=== PATIENT | female | born 1965 | race African-American/Black ===

== ENCOUNTER → 2016-09-05 | Outpatient (CLI) | payer MEDICARE, MEDICAID ==
[2014-01-04 21:53] VITALS: BP 123/68
[~2016-09-05] MED LIST: UNABLE MC
--- NOTE | 2016-09-05 16:12 | RAD ---
DATE: 09/05/2016. EXAM: DIGITAL SCREEN BILAT W/CAD. HISTORY: Routine mammographic screening. COMPARISON: 08/23/2013. This study was interpreted with the benefit of Computerized Aided Detection (CAD). FINDINGS: The breast parenchyma shows scattered fibroglandular densities. There are no suspicious masses, microcalcifications or architectural distortion. Reduction mammoplasty changes are seen bilaterally. Scattered calcifications are benign. BI-RADS CATEGORY: 2 BENIGN FINDING(S). RECOMMENDED FOLLOW-UP: 12M 12 MONTH FOLLOW-UP. PQRS compliance statement: Patient information was entered into a reminder system with a target due date 09/05/2017 for the next mammogram. Mammography is a sensitive method for finding small breast cancers, but it does not detect them all and is not a substitute for careful clinical examination. A negative mammogram does not negate a clinically suspicious finding and should not result in delay in biopsying a clinically suspicious abnormality. "Our facility is accredited by the [employer] Mammography Program."
== END | disposition home or self-care (01) ==
LOC: MAMMO 14:20
PROVIDERS: ATTEND Family Medicine
DX: Z12.31 Encounter for screening mammogram for malignant neoplasm of breast (principal)
CPT/HCPCS: G0202; 77067

== ENCOUNTER → 2017-05-05 | Day surgery (SDC) | payer MEDICARE ==
[~2017-05-05] MED LIST changes: +ACET325T9 PO; +ATEN25TA PO; +ESCITALOPRAM OX10 MG PO; +HYDROmorphone 2 MG/ML VIAL IV PRN; +IV RINGERS,LACTATED 1000ML 1,000 ML IV SCH; +LIDOCAINE 1% PF 2 ML VIAL. ID PRN; +LOSA1TAB19 PO; +LUBI24CA7 PO; +LURA60TA PO; +MORPHINE SULFATE 2 MG/ML DISP.SYRIN. IV PRN; +NAPR500T PO; +OMEP40CA5 PO; +ONDA4TAB11 PO; +ONDANSETRON PF 4 MG/2 ML VIAL. IV PRN; +PROCHLORPERAZINE 10 MG/2 ML VIAL. IV PRN; +PROPOFOL 20 ML IV ONE; +SIMV20TA3 PO; +fentaNYL PF VIAL 100 MCG/2 ML VIAL IV PRN
--- NOTE | 2017-05-05 10:23 | PDOC1 ---
HISTORY & PHYSICAL H&P Glenys Quach [id number] 1965 01/20/2017 02:30 PM 06/[address] [place] [address] [employer] [facility] OUR PATIENTS COME FIRST [address] [place] [address] Ph. [phone] Patient: Glenys Quach Date of : 1965 Date: 01/20/2017 2:30 PM Visit Type: Consult This 51 year old female presents for Abdominal pain and Screening colonoscopy. History of Present Illness: 1. Abdominal pain Location is diffuse. The patient describes it as aching, bloating and gnawing. Denies aggravating factors. Denies relieving factors. Additional information: Patient has no consistent complain and appears to have no understanding of issues. Explain in detail as to need for colonoscopy due to complain and also cor screening purposes. 2. Screening colonoscopy No prior screening. Denies risk factors. Associated symptoms include abdominal pain. Pertinent negatives include change in bowel habits, change in stool caliber, constipation, decreased appetite, diarrhea, melena, nausea, rectal bleeding, vomiting, weight gain and weight loss. Additional information : No family history of colon cancer, No family history of Crohn's/colitis and No NSAID/ASA use. INTAKE COMMENTS: Intake Comments: Nurse Note: the pt is here today to schedule a colonoscopy, the pt is having some abd pain. She states that she had a colonoscopy before. PROBLEM LIST: Problem Description Onset Date Chronic Notes Hypertension 01/21/2017 Y PAST MEDICAL/SURGICAL HISTORY (Detailed) Disease/disorder Onset Date Management Date Comments Tonsillectomy Breast Reduction Depression Dyslipidemia GERD Hypertension Osteoarthritis Schizoaffective disorder Medications (Active): Started Medication Directions Instruction Stopped Amitiza 24 mcg capsule take 1 capsule by oral route 2 times every day with food and water atenolol 25 mg tablet take 1 tablet by oral route every day benzonatate 100 mg capsule take 1 capsule by oral route every 4 hours escitalopram 10 mg tablet take 1 tablet by oral route every day fluticasone 50 mcg/actuation nasal spray,suspension spray 1 spray by intranasal route every day in each nostril Latuda 60 mg tablet take 1 tablet by oral route every day with food (at least 350 calories) losartan 50 mg-hydrochlorothiazide 12.5 mg tablet take 1 tablet by oral route every day omeprazole 40 mg capsule,delayed release take 1 capsule by oral route every day before a meal ondansetron 8 mg disintegrating tablet take 1 tablet by oral route every 8 hours for [address] on top of the tongue where it will dissolve, then swallow 28 mg-800 mcg tablet simvastatin 20 mg tablet take 1 tablet by oral route every day in the evening Allergies: Ingredient Reaction Medication Name Comment LEVOFLOXACIN Levaquin TOPIRAMATE PENICILLINS REVIEW OF SYSTEMS System Neg/Pos Details Constitutional Negative Chills, fever, malaise, weight gain and weight loss. ENMT Negative Sore throat. Eyes Negative Double vision. Respiratory Negative Dyspnea and wheezing. Cardio Negative Chest pain and irregular heartbeat/palpitations. GI Positive Abdominal pain, See HPI. GI Negative Change in bowel habits, change in stool caliber, constipation, decreased appetite, diarrhea, melena, nausea, see HPI, rectal bleeding and vomiting. Negative Dysuria and hematuria. Endocrine Negative Cold intolerance and heat intolerance. Psych Negative Anxiety. Integumentary Negative Hives and rash. MS Negative Joint pain. Tano/Lymph Negative Easy bleeding and easy bruising. Allergic/Immuno Negative Food allergies. VITAL SIGNS Time BP mm/Hg Pulse /min Resp /min Temp F Ht ft Ht in Ht cm Wt lb Wt kg BMI kg/ m2 BSA m2 O2 Sat% 4:33 PM 138/74 68 98.1 5.0 4.00 162.56 131.20 59.511 22.52 97 Time Measured by 4:33 PM Adriana Davenport PHYSICAL EXAM: Exam Findings Details Constitutional Normal Well developed. Eyes Normal Conjunctiva - Right: Normal, Left: Normal. Sclera - Right: Normal, Left: Normal. Nasopharynx Normal Lips/teeth/gums - Normal. Neck Exam Normal Inspection - Normal. Thyroid gland - Normal. Respiratory Normal Inspection - Normal. Auscultation - Normal. Cardiovascular Normal Regular rate and rhythm. No murmurs, gallops, or rubs. Vascular Normal Pulses - Carotids: Normal, Femoral: Normal, Dorsalis pedis: Normal. Abdomen Normal Inspection - Normal. Anterior palpation - No guarding. No abdominal tenderness. No hepatic enlargement. No splenic enlargement. No hernia. No Ascites. Skin Normal Inspection - Normal. Extremity Normal No edema. Psychiatric Normal Oriented to time, place, person, and situation. Appropriate mood and effect. Assessment/Plan # Detail Type Description 1. Assessment Generalized abdominal pain (R10.84). Patient Plan Patient does not have any consistent issue and will await colonoscopy result for any findings. 2. Assessment Encounter for screening colonoscopy (Z12.11). Patient Plan schedule colonoscopy at [facility] Plan Orders Further diagnostic evaluations ordered today include(s) Colonoscopy to be performed today. She is to schedule a follow-up visit with Sincere Wiley MD upon completion of work-up Electronically signed by: Sincere Wiley MD 01/21/2017 12:45 PM Document generated by: Sincere Wiley 01/21/2017 12:45 PM Josh Arellano MD, Family Practice; Jhonatan Dillard MD Internal Medicine; Austin Murry MD, Internal Medicine; Lorna Wiley MD Internal Medicine; Sincere Wiley MD, Gastroenterology; Fredy Parson MD, Rheumatology, S. Donis Browning, Physical Medicine/Rehab JTessa Oropeza APRN ------ 05/05/17 Patient seen and examined. No change in H&P. SINCERE WILEY MD, PRAVIN N MD May 05, 2017 10:23
[2017-05-05 11:25] VITALS: BP 139/74
== END | disposition home or self-care (01) ==
LOC: ENDOS 08:57
PROVIDERS: ATTEND Internal Medicine Gastroenterology
DX: Z12.11 Encounter for screening for malignant neoplasm of colon (principal); K57.30 Diverticulosis of large intestine without perforation or abscess without bleeding; E78.00 Pure hypercholesterolemia, unspecified; I10 Essential (primary) hypertension; K21.9 Gastro-esophageal reflux disease without esophagitis; M19.91 Primary osteoarthritis, unspecified site; F41.9 Anxiety disorder, unspecified; F32.9 Major depressive disorder, single episode, unspecified; Z87.39 Personal history of other diseases of the musculoskeletal system and connective tissue; Z88.1 Allergy status to other antibiotic agents; Z88.0 Allergy status to penicillin
CPT/HCPCS: G0121; J2704

== ENCOUNTER 2017-05-17 22:44 | Emergency (ER) | payer MEDICARE ==
[~2017-05-17] VITALS: Ht 152.4 cm; Wt 59.0 kg
[~2017-05-17 22:44] MED LIST changes: -ACET325T9 PO; -HYDROmorphone 2 MG/ML VIAL IV PRN; -IV RINGERS,LACTATED 1000ML 1,000 ML IV SCH; -LIDOCAINE 1% PF 2 ML VIAL. ID PRN; -MORPHINE SULFATE 2 MG/ML DISP.SYRIN. IV PRN; -NAPR500T PO; -ONDANSETRON PF 4 MG/2 ML VIAL. IV PRN; -PROCHLORPERAZINE 10 MG/2 ML VIAL. IV PRN; -PROPOFOL 20 ML IV ONE; -fentaNYL PF VIAL 100 MCG/2 ML VIAL IV PRN
[2017-05-17 22:55] VITALS: BP 108/55
--- NOTE | 2017-05-17 23:32 | PHYS DOC ---
Past Medical History Past Medical History: Depression, Hypertension, Schizophrenia, Other Additional Past Medical Histor: liver problems, bowel problems Past Surgical History: Other Additional Past Surgical Histo: breast reduction Alcohol Use: None Drug Use: None Adult General Chief Complaint Chief Complaint: HEADACHE [facility] HPI Patient is a 51 year old female who presents with head injury and persistent headache. 51-year-old female presents with head injury. Thursday night which is approximately 3 weeks ago, patient's low back at work hitting her head. She denies loss of consciousness. She's been having some continued headache without any other symptoms.. She's not had any focal weakness. 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 She says she was at work when it happened. Pain is no longer constant and is intermittent. No worsening or relieving symptoms. No visual changes. She denies injury elsewhere. She says that symptoms are mildly improved with Motrin. SHe denies any neck pain change in vision, change in speech or memory. Review of Systems Review of Systems Constitutional: Denies fever or chills [] Eyes: Denies change in visual acuity, redness, or eye pain [] HENT: Denies nasal congestion or sore throat [] Respiratory: Denies cough or shortness of breath [] Cardiovascular: No additional information not addressed in HPI [] GI: Denies abdominal pain, nausea, vomiting, bloody stools or diarrhea [] : Denies dysuria or hematuria [] Musculoskeletal: Denies back pain or joint pain [] Integument: Denies rash or skin lesions [] Neurologic: Denies headache, focal weakness or sensory changes [] Endocrine: Denies polyuria or polydipsia [] All other systems were reviewed and found to be within normal limits, except as documented in this note. Allergies Allergies Allergies Coded Allergies Type Severity Reaction Last Updated Verified Penicillins Allergy Intermediate "i dont know" 05/05/17 No levofloxacin Allergy Intermediate 05/05/17 Yes topiramate Allergy Intermediate 05/05/17 Yes Physical Exam Physical Exam Vital signs recorded on the chart within normal limits stable normal Constitutional: Well developed, well nourished, no acute distress, non-toxic appearance. [] HENT: Normocephalic, atraumatic, bilateral external ears normal, oropharynx moist, no oral exudates, nose normal. She has a mild area of soft tissue tenderness over the occiput with no obvious step-offs or crepitus no signs of skull fracture. There is no obvious signs of basilar skull fracture with raccoon sign or Torres sign.[] Eyes: PERRLA, EOMI, conjunctiva normal, no discharge. Neck: Normal range of motion, no tenderness, supple, no stridor. [] Cardiovascular:Heart rate regular rhythm, no murmur [] Lungs & Thorax: Bilateral breath sounds clear to auscultation [] Skin: Warm, dry, no erythema, no rash. [] Back: No tenderness, no CVA tenderness. [] Extremities: No tenderness, no cyanosis, no clubbing, ROM intact, no edema. [] Neurologic: Alert and oriented X 3, normal motor function, normal sensory function, no focal deficits noted. She has normal finger to nose normal strength in all extremities no loss of sensation to light touch and proprioception over the limbs.[] Psychologic: Affect normal, judgement normal, mood normal. [] Current Patient Data Vital Signs Vital Signs Date Time Temp Pulse Resp B/P (MAP) Pulse Ox O2 Delivery O2 Flow Rate FiO2 05/17/17 22:55 98.1 64 16 108/55 (72) 99 Room Air 98.1 EKG EKG [] Radiology/Procedures Radiology/Procedures [] [facility] [address], [place] [id number] IMAGING REPORT Signed PATIENT: SENAIT LUCERO ACCOUNT: [id number] : 1965 LOCATION: ER AGE: 51 SEX: F EXAM STATUS: PRE ER ORD. PHYSICIAN: MARYJANE SNOWDEN MD REASON: fall with head injury PROCEDURE: CT HEAD AND CERVICAL SPINE WO CT of the head without contrast, 04/27/2017: History: Fall, head injury. Comparison is made to a study from 02/12/2006. The ventricles are within normal limits in size. There is no shift of the midline structures. There is no evidence of acute intracranial hemorrhage or mass effect. IMPRESSION: No acute intracranial abnormality is detected. CT of the cervical spine without contrast, 04/27/2017: Noncontrast scans were obtained with multiplanar reconstructions produced. There is moderate disc space narrowing at C5-6 with moderate anterior and posterior marginal spurring. Additional spurs are present at C4-5 and C6-7. There are mild scattered posterior disc bulges. There are minimal degenerative changes involving scattered facet joints. There is mild associated narrowing of the central spinal canal at C5-6 with mild bilateral foraminal narrowing at that level. No acute fracture or dislocation is identified. IMPRESSION: 1. Mild scattered degenerative changes. 2. No acute bony abnormality is detected. Results by me at approximately 11:30 PM Course & Med Decision Making Course & Med Decision Making Pertinent Labs and Imaging studies reviewed. (See chart for details) [Patient presents with persistent headache after a fall from standing at work with a negative head CT that was completed several weeks ago. Likely suffering from postconcussive syndrome. Patient has a normal neuro exam. With no obvious signs of basilar skull fracture or residual skull fracture that was missed on initial evaluation. Patient's intermittent headache is well treated with Motrin I will prescribe her Tylenol as well encouraged her to follow-up with her primary care doctor referral for Workmen's Compensation and referral to a neurologist. [facility] headache reevaluation: The patient presented to the emergency part with headache. The patient is now resting comfortably and feels better, is awake, talkative, interactive, and in no acute distress. The patient appears well and is able to tolerate by mouth fluids and medications. Repeat evaluation is unremarkable without any specific neurologic findings. The patient is neurologically intact, has normal mental status, and is ambulatory in the ED. The history, exam, and any diagnostic testing completed in the ED (if any) and the patient's current condition do not suggest meningitis, stroke, sepsis, subarachnoid hemorrhage, intracranial bleed , encephalitis, temporal arteritis, or other significant pathology warranting further testing and continue treatment in the ED. At this point I do not believe admission or neurologic consultation or other specialist evaluation are needed at this point. The patient's vital signs have been stabilized. Patient' s condition is stable and appropriate for discharge. The patient will pursue further up and evaluation with primary care and other designated resources or consulting physicians as indicated in the discharge instructions. Dragon Disclaimer Dragon Disclaimer This electronic medical record was generated, in whole or in part, using a voice recognition dictation system. Departure Departure Impression: Primary Impression: Post concussion syndrome Additional Impression: Headache Disposition: HOME, SELF-CARE Condition: STABLE Referrals: ALICIA FRANCISCO MD (PCP) Patient Instructions: Concussion and Brain Injury Additional Instructions: discharge: I've spoken with the patient and/or caregivers. I've explained the patient's condition, diagnosis and treatment plan based on information available to me at this time. I've answered the patient's and/or caregivers questions and addressed any concerns. The patient and/or caregivers have a good understanding the patient's diagnosis, condition and treatment plan as can be expected at this point. Vital signs have been stabilized. The patient's condition is stable for discharge from the emergency department. The patient will pursue further outpatient evaluation with her primary care provider or other designated consulting physician as outlined in the discharge instructions. Patient and/or caregivers are agreeable to this plan of care and follow-up instructions have been explained in detail. The patient and/or caregivers have received these instructions in written format and expressed understanding of these discharge instructions. The patient and her caregivers are aware that if any significant change in condition or worsening of symptoms should prompt him to immediately return to this of the closest emergency department. If an emergent department is not readily available I would encourage him to call 911. Scripts Naproxen (NAPROSYN) 500 Mg Tablet 1 TAB PO BID, #14 TAB 1 Refill Prov: RAFY DELUCA MD 05/18/17 Acetaminophen (TYLENOL) 325 Mg Tablet 1-2 TAB PO QID, #60 TAB 2 Refills Prov: RAFY DELUCA MD 05/18/17 Problem Qualifiers RAFY DELUCA MD May 17, 2017 23:32
[2017-05-18] MEDS ORDERED: NAPR-683 PO (00:01)
[2017-05-18] MEDS ORDERED: ACET325T9 PO (00:01)
== END 2017-05-18 00:06 | disposition home or self-care (01) ==
LOC: ER 22:44
DX: F07.81 Postconcussional syndrome (principal); F32.9 Major depressive disorder, single episode, unspecified; I10 Essential (primary) hypertension; F20.9 Schizophrenia, unspecified; Z88.0 Allergy status to penicillin; Z88.8 Allergy status to other drugs, medicaments and biological substances; Z88.1 Allergy status to other antibiotic agents; W18.39XA Other fall on same level, initial encounter; Y93.89 Activity, other specified; Y92.69 Other specified industrial and construction area as the place of occurrence of the external cause; Y99.8 Other external cause status
CPT/HCPCS: 99283

== ENCOUNTER → 2018-02-19 | Outpatient (CLI) | payer MEDICARE ==
[2017-05-17 23:50] VITALS: BP 111/56
[~2018-02-19] MED LIST changes: +ACET325T9 PO; +NAPR-683 PO
--- NOTE | 2018-02-19 15:46 | KCIC ---
EXAM: Right foot, 3 views. HISTORY: Trauma. COMPARISON: None. FINDINGS: 3 views of the right foot are obtained. There is no fracture, dislocation or subluxation. There is minimal spurring at the base of the first proximal phalanx. There is an accessory navicular. There is slight enthesopathy at the Achilles tendon insertion. IMPRESSION: No acute osseous finding. Electronically signed by: Vani Mijares MD (02/19/2018 3:42 PM) [facility] [place]
== END | disposition home or self-care (01) ==
LOC: KCIC 13:56
PROVIDERS: ATTEND Internal Medicine
DX: M76.61 Achilles tendinitis, right leg (principal); M77.51 Other enthesopathy of right foot and ankle; I10 Essential (primary) hypertension; E78.00 Pure hypercholesterolemia, unspecified; K21.9 Gastro-esophageal reflux disease without esophagitis; Z87.39 Personal history of other diseases of the musculoskeletal system and connective tissue; Z88.0 Allergy status to penicillin; Z88.1 Allergy status to other antibiotic agents; Z88.8 Allergy status to other drugs, medicaments and biological substances
CPT/HCPCS: 73630

== ENCOUNTER 2018-07-14 11:13 | Observation (INO) | payer MEDICARE ==
[~2018-07-14] VITALS: Ht 152.4 cm; Wt 71.9 kg
[2018-07-14] MEDS ORDERED: LIDO:MAALOX 1:1 20 ML SINGLE DOSE. SWSW ONE ×2 (11:45→14:30)
[2018-07-14 11:47] LABS: BASO % 0 % (0-3); EOS # 0.1 x10^3/uL (0.0-0.7); EOS % 2 % (0-3); HEMATOCRIT 40.4 % (36.0-47.0); HEMOGLOBIN 13.9 g/dL (12.0-15.5); LYMPH # 0.7 x10^3/uL (1.0-4.8); LYMPH % 14 % (24-48); MEAN CORPUSCULAR HEMOGLOBIN 32 pg (25-35); MEAN CORPUSCULAR HGB CONC 35 g/dL (31-37); MEAN CORPUSCULAR VOLUME 93 fL (79-100); MONO # 0.3 x10^3/uL (0.0-1.1); MONO % 7 % (0-9); NEUT # 4.1 x10^3uL (1.8-7.7); NEUT % 78 % (31-73); PLATELET COUNT 362 x10^3/uL (140-400); RED BLOOD COUNT 4.32 x10^6/uL (3.50-5.40); RED CELL DISTRIBUTION WIDTH 12.9 % (11.5-14.5); WHITE BLOOD COUNT 5.2 x10^3/uL (4.0-11.0)
--- NOTE | 2018-07-14 11:53 | PHYS DOC ---
Past Medical History Past Medical History: Depression, Hypertension, Schizophrenia, Other Additional Past Medical Histor: liver problems, bowel problems Past Surgical History: Tonsillectomy, Other Additional Past Surgical Histo: breast reduction Alcohol Use: None Drug Use: None Adult General Chief Complaint Chief Complaint: CHEST PAIN HPI HPI Patient is a 53 year old female presents with chest discomfort and throat pain she says she has had this pain every day since 2005 she says it hurts when she lies down and lays on her left side and she'll feel cramping and some burning pain up into her throat area she thinks it is heartburn but last night it was really bad she couldn't go to work her bosses really mean she wants a note she tells me. No shortness of breath no fever. It really only hurts when she lies flat it is not exertional in anyway. Review of Systems Review of Systems Constitutional: Denies fever or chills [] Eyes: Denies change in visual acuity, redness, or eye pain [] HENT: Denies nasal congestion or sore throat [] Musculoskeletal: Denies back pain or joint pain [] Integument: Denies rash or skin lesions [] Neurologic: Denies headache, focal weakness or sensory changes [] Endocrine: Denies polyuria or polydipsia [] All other systems were reviewed and found to be within normal limits, except as documented in this note. Current Medications Current Medications Current Medications Medications (Trade) Dose Ordered Sig/Cash Start Time Stop Time Status Last Admin Dose Admin Multi-Ingredient Mouthwash/Gargle (Gi Cocktail) 20 ml 1X ONCE 07/14/18 11:45 07/14/18 11:46 DC 07/14/18 11:55 20 ML Allergies Allergies Allergies Coded Allergies Type Severity Reaction Last Updated Verified Penicillins Allergy Intermediate "i dont know" 07/14/18 No levofloxacin Allergy Intermediate 07/14/18 Yes topiramate Allergy Intermediate 07/14/18 Yes Physical Exam Physical Exam Constitutional: Well developed, well nourished, no acute distress, non-toxic appearance. [] HENT: Normocephalic, atraumatic, bilateral external ears normal, oropharynx moist, no oral exudates, nose normal. [] Eyes: PERRLA, EOMI, conjunctiva normal, no discharge. [] Neck: Normal range of motion, no tenderness, supple, no stridor. [] Cardiovascular:Heart rate regular rhythm, no murmur [] Lungs & Thorax: Bilateral breath sounds clear to auscultation [] Abdomen: Bowel sounds normal, soft, no tenderness, no masses, no pulsatile masses. [] Skin: Warm, dry, no erythema, no rash. [] Back: No tenderness, no CVA tenderness. [] Extremities: No tenderness, no cyanosis, no clubbing, ROM intact, no edema. [] Neurologic: Alert and oriented X 3, normal motor function, normal sensory function, no focal deficits noted. [] Psychologic: odd affect Current Patient Data Vital Signs Vital Signs Date Time Temp Pulse Resp B/P (MAP) Pulse Ox O2 Delivery O2 Flow Rate FiO2 07/14/18 11:15 98.4 107 18 140/86 (104) 93 Room Air 98.4 Lab Values Laboratory Tests Test 07/14/18 11:25 White Blood Count 5.2 x10^3/uL (4.0-11.0) Red Blood Count 4.32 x10^6/uL (3.50-5.40) Hemoglobin 13.9 g/dL (12.0-15.5) Hematocrit 40.4 % (36.0-47.0) Mean Corpuscular Volume 93 fL (79-100) Mean Corpuscular Hemoglobin 32 pg (25-35) Mean Corpuscular Hemoglobin Concent 35 g/dL (31-37) Red Cell Distribution Width 12.9 % (11.5-14.5) Platelet Count 362 x10^3/uL (140-400) Neutrophils (%) (Auto) 78 % (31-73) H Lymphocytes (%) (Auto) 14 % (24-48) L Monocytes (%) (Auto) 7 % (0-9) Eosinophils (%) (Auto) 2 % (0-3) Basophils (%) (Auto) 0 % (0-3) Neutrophils # (Auto) 4.1 x10^3uL (1.8-7.7) Lymphocytes # (Auto) 0.7 x10^3/uL (1.0-4.8) L Monocytes # (Auto) 0.3 x10^3/uL (0.0-1.1) Eosinophils # (Auto) 0.1 x10^3/uL (0.0-0.7) Basophils # (Auto) 0.0 x10^3/uL (0.0-0.2) Sodium Level 137 mmol/L (136-145) Potassium Level 3.5 mmol/L (3.5-5.1) Chloride Level 103 mmol/L (98-107) Carbon Dioxide Level 28 mmol/L (21-32) Anion Gap 6 (6-14) Blood Urea Nitrogen 10 mg/dL (7-20) Creatinine 1.2 mg/dL (0.6-1.0) H Estimated GFR (Cockcroft-Gault) 57.1 BUN/Creatinine Ratio 8 (6-20) Glucose Level 95 mg/dL (70-99) Calcium Level 9.2 mg/dL (8.5-10.1) Total Bilirubin 0.6 mg/dL (0.2-1.0) Aspartate Amino Transferase (AST) 21 U/L (15-37) Alanine Aminotransferase (ALT) 22 U/L (14-59) Alkaline Phosphatase 79 U/L (46-116) Troponin I Quantitative < 0.017 ng/mL (0.000-0.055) Total Protein 8.1 g/dL (6.4-8.2) Albumin 3.6 g/dL (3.4-5.0) Albumin/Globulin Ratio 0.8 (1.0-1.7) L Lipase 63 U/L (73-393) L Laboratory Tests 07/14/18 11:25 Laboratory Tests 07/14/18 11:25 EKG EKG []EKG shows normal sinus rhythm rate of [address] changes noted laterally no acute ST elevation was noted EKG qtc 420 i reviewed old ekg with short from his office compared to 12/20/14 these flattened changes are different. Radiology/Procedures Radiology/Procedures [] Impressions: cxr neg acuteComparison/Correlation: 12/01/2007 portable chest x-ray exam Findings: Portable upright frontal view chest was obtained. Heart size and pulmonary vasculature are normal. No infiltrate or effusion. No pneumothorax. Bony structures are unremarkable. Dextroconvexity of the low thoracic and upper lumbar spine noted. Impression: No active disease. Electronically signed by: Samuel Arnold MD (07/14/2018 11:58 AM) [id number] DICTATED and SIGNED BY: SAMUEL ARNOLD MD DATE: 07/14/18 [id number] Course & Med Decision Making Course & Med Decision Making Pertinent Labs and Imaging studies reviewed. (See chart for details) hx htn schizophrenia []pt with very atypical symptoms. It sounds probably like GERD however patient does have risk factors and is an unreliable historian due to the schizophrenia i did review old ekg with deja there is some changes today nonsp st flattening combined with weakness with ambulation and unreliable history we will admit for risk stratification and a formal rule out pt received gi cocktail in the er and it didnt really help Emy Disclaimer Emy Disclaimer This electronic medical record was generated, in whole or in part, using a voice recognition dictation system. Departure Departure Impression: Primary Impression: Chest pain Disposition: ADMITTED INPATIENT Admitting Physician: Anna Short Condition: STABLE Referrals: ANNA SHORT MD (PCP) MAIK TOLBERT MD Jul 14, 2018 11:53
[2018-07-14 12:01] LABS: CALCIUM 9.2 mg/dL (8.5-10.1); CREATININE 1.2 mg/dL (0.6-1.0); GFR 57.1; POTASSIUM 3.5 mmol/L (3.5-5.1)
--- NOTE | 2018-07-14 12:02 | RAD ---
Examination: PORTABLE CHEST 1V History: CHEST PAIN Comparison/Correlation: 12/01/2007 portable chest x-ray exam Findings: Portable upright frontal view chest was obtained. Heart size and pulmonary vasculature are normal. No infiltrate or effusion. No pneumothorax. Bony structures are unremarkable. Dextroconvexity of the low thoracic and upper lumbar spine noted. Impression: No active disease. Electronically signed by: Samuel Ma MD (07/14/2018 11:58 AM) [id number]
[2018-07-14 12:06] LABS: ALBUMIN 3.6 g/dL (3.4-5.0); ALBUMIN/GLOBULIN RATIO 0.8 (1.0-1.7); TOTAL BILIRUBIN 0.6 mg/dL (0.2-1.0); TOTAL PROTEIN 8.1 g/dL (6.4-8.2)
--- NOTE | 2018-07-14 13:21 | EKG ---
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
[2018-07-14] MEDS ORDERED: ASPIRIN CHEWABLE 81 MG TABLET. PO ONE (13:30)
--- NOTE | 2018-07-14 14:23 | PDOC2 ---
ANDREW MARIE WATER SOFTENER INSTALLER 07/14/18 1423: CARDIAC CONSULT DATE OF CONSULT Date of Consult DATE: 07/14/18 TIME: 14:16 REASON FOR CONSULT Reason for Consult: CP REFERRING PHYSICIAN Referring Physician: Bon SOURCE Source: Chart review, Patient HISTORY OF PRESENT ILLNESS HISTORY OF PRESENT ILLNESS This is a pleasant 53 yo female admitted for complains of chest pain. She has long standing hx of GERD and has been taking prilosec. She has had EGD several years ago but could not recall it but verbalized it was OK. Denies any CAD, VTE , arrhythmias, PUD or any esophageal issues. 2 days ago after dinner she started having this midchest pressure and it was intense. It hurts when she takes a deep breath and made her nauseous. This sensation finally got relieved by belching. She did not take any tums or mylanta at that time. Also verbalized that when she swallows sometimes it feels like food gets trapped momentarily then finally goes down with fluids. This has been consistent in the last 2 days. She also described that it also felt like her heart was pounding. No vomiting. She did point out her epigastric region and verbalized again it hurts when taking deep breath sometimes. Her mid chest pain is also reproducible with palpation. She has gained 5 pounds in the last month. She proceed to deny that she has had hysterectomy but her chart states that had it done in 09/2017. She then tells me that she has had bleed in her rectum 2 weeks ago but then told me that she also had it in her vagina and she still has regular period. No anorexia. no fever or chills. She is not sexually active. PAST MEDICAL HISTORY Cardiovascular: HTN, Hyperlipidemia Pulmonary: No pertinent hx CENTRAL NERVOUS SYSTEM: Other (No pertinent hstory) GI: GERD Heme/Onc: No pertinent hx Hepatobiliary: No pertinent hx Psych: Depression, Schizophrenia Musculoskeletal: Osteoarthritis Rheumatologic: No pertinent hx Infectious disease: No pertinent hx ENT: No pertinent hx Renal/: No pertinent hx Endocrine: No pertinent hx PAST SURGICAL HISTORY Past Surgical History: Tonsillectomy, Hysterectomy, Other (breast reduction) FAMILY HISTORY Family History noncontributory to CV SOCIAL HISTORY Smoke: Quit (remotely) ALCOHOL: none Drugs: None Lives: with Family (sister) CURRENT MEDICATIONS CURRENT MEDICATIONS Current Medications Medications (Trade) Dose Ordered Sig/Cash Route PRN Reason Start Time Stop Time Status Last Admin Dose Admin Multi-Ingredient Mouthwash/Gargle (Gi Cocktail) 20 ml 1X ONCE SWSW 07/14/18 11:45 07/14/18 11:46 DC 07/14/18 11:55 Aspirin (Children'S Aspirin) 324 mg 1X ONCE PO 07/14/18 13:30 07/14/18 13:31 DC 07/14/18 13:30 ALLERGIES ALLERGIES: Coded Allergies: Penicillins (Unverified Allergy, Intermediate, "i dont know", 07/14/18) levofloxacin (Verified Allergy, Intermediate, 07/14/18) topiramate (Verified Allergy, Intermediate, 07/14/18) ROS Review of System 14 point ROS evaluated with pertinent positives noted per HPI PHYSICAL EXAM General: Alert, Oriented X3, Cooperative, No acute distress HEENT: Atraumatic, Mucous membr. moist/pink Lungs: Clear to auscultation, Normal air movement Heart: Regular rate (SR), Normal S1, Normal S2, No murmurs Abdomen: Soft, Other (mild tenderness with palpation, diffuse) Extremities: No cyanosis, No edema Skin: No breakdown, No significant lesion Neuro: Normal speech, Sensation intact Psych/Mental Status: Mental status NL, Mood NL MUSCULOSKELETAL: Osteoarthritic changes both hands VITALS VITALS Vital Signs Date Time Temp Pulse Resp B/P (MAP) Pulse Ox O2 Delivery O2 Flow Rate FiO2 07/14/18 11:15 98.4 107 18 140/86 (104) 93 Room Air 98.4 LABS Lab: Laboratory Tests Test 07/14/18 11:25 White Blood Count 5.2 x10^3/uL (4.0-11.0) Red Blood Count 4.32 x10^6/uL (3.50-5.40) Hemoglobin 13.9 g/dL (12.0-15.5) Hematocrit 40.4 % (36.0-47.0) Mean Corpuscular Volume 93 fL (79-100) Mean Corpuscular Hemoglobin 32 pg (25-35) Mean Corpuscular Hemoglobin Concent 35 g/dL (31-37) Red Cell Distribution Width 12.9 % (11.5-14.5) Platelet Count 362 x10^3/uL (140-400) Neutrophils (%) (Auto) 78 % (31-73) Lymphocytes (%) (Auto) 14 % (24-48) Monocytes (%) (Auto) 7 % (0-9) Eosinophils (%) (Auto) 2 % (0-3) Basophils (%) (Auto) 0 % (0-3) Neutrophils # (Auto) 4.1 x10^3uL (1.8-7.7) Lymphocytes # (Auto) 0.7 x10^3/uL (1.0-4.8) Monocytes # (Auto) 0.3 x10^3/uL (0.0-1.1) Eosinophils # (Auto) 0.1 x10^3/uL (0.0-0.7) Basophils # (Auto) 0.0 x10^3/uL (0.0-0.2) Sodium Level 137 mmol/L (136-145) Potassium Level 3.5 mmol/L (3.5-5.1) Chloride Level 103 mmol/L (98-107) Carbon Dioxide Level 28 mmol/L (21-32) Anion Gap 6 (6-14) Blood Urea Nitrogen 10 mg/dL (7-20) Creatinine 1.2 mg/dL (0.6-1.0) Estimated GFR (Cockcroft-Gault) 57.1 BUN/Creatinine Ratio 8 (6-20) Glucose Level 95 mg/dL (70-99) Calcium Level 9.2 mg/dL (8.5-10.1) Total Bilirubin 0.6 mg/dL (0.2-1.0) Aspartate Amino Transf (AST/SGOT) 21 U/L (15-37) Alanine Aminotransferase (ALT/SGPT) 22 U/L (14-59) Alkaline Phosphatase 79 U/L (46-116) Troponin I Quantitative < 0.017 ng/mL (0.000-0.055) Total Protein 8.1 g/dL (6.4-8.2) Albumin 3.6 g/dL (3.4-5.0) Albumin/Globulin Ratio 0.8 (1.0-1.7) Lipase 63 U/L (73-393) ASSESSMENT/PLAN ASSESSMENT/PLAN 1. Atypical chest pain: initial trop nml. EKG SR with LVH and nonspecific a ST- T wave changes with no acute changes. Suspect GI 2. Possible esophageal stricture/spasm: globus sensation 3. GERD/dyspepsia 4. HTN: controlled 5. HLP 6. Obesity 7. Hx of schizophrenia 8. Vaginal/rectal bleeding?: Hgb stable. claiming regular period. pt not sure but noted in chart review with hysterectomy on 10/02/2017. Defer to PCP Recommendations 1. TTE. Trend troponin. TSH, lipids 2. PPI, consult GI. GI cocktail has been given 3. Restart home BP meds once finalized 4. Supportive care COLTON ANDRADE MD 07/14/18 1812: CARDIAC CONSULT ASSESSMENT/PLAN ASSESSMENT/PLAN Pt. seen and examined. 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 Primary concern would be GI. If negative w/u, could then consider outpt stress testing. Thanks. Pls call w/ questions. ANDREW MARIE APRN Jul 14, 2018 14:23 COLTON ANDRADE MD Jul 14, 2018 18:12
[2018-07-14] MEDS ORDERED: FAMOTIDINE 20 MG TABLET. PO ONE (14:30)
[2018-07-14 16:00] VITALS: BP 139/86
--- NOTE | 2018-07-14 16:17 | PDOC2 ---
GI CONSULT Reason For Consult: globus, esophageal stricture? rectal bleed? HPI: HPI: 53 y/o female seen in the ER. Reviewed chart - varying history. To me, she reports midchest pain and burning associated w/ belching and nausea that awoke her during sleep last night after eating a pork chop and albanian fries her sister made for dinner. She says she has had this pain on and off "ever since Dr. Parmar was a doctor" - thinks for more than 10 years. H/o GERD - was previously on PPI, then stopped for a month (Rx ran out and she didn't have money for a co-pay to see her doctor for awhile), then started omeprazole QD last week. Feels food get stuck in her throat - I asked her how long this had been going on and she said "it just happened today" and points to her empty lunch tray (except didn't eat side salad). Denies regurg or vomiting. Feels "cramps" in her throat. Sometimes has upper abdominal discomfort - does not describe this clearly. I believe has h/o constipation and takes Amitiza - I asked her about this and she said "it's not working" but then said "I pooped a lot yesterday." About two weeks ago she had some bleeding. She thinks the blood was red and black w/ clots coming from her vagina, but then thought it was probably coming from her rectum too. She does not know if she had a hysterectomy but thinks maybe someone named Bridgette "gave her one in [place]." Has gained weight, feels bloated. Tells me EGD years ago, recalled as normal. Can see she had a colonoscopy w/ Dr. Wiley in 04/2017 - cannot view procedure report. Says Dr. Parmar said her "liver was off-balance." She denies PUD, GB, and pancreas history. Summary list shows Naproxen - she says "I don't know what I take." Thinks GI cocktail made her feel better. Labs are unrevealing except Cr 1.2. Cardiology following, ordered echocardiogram. PMH: PMH: HTN, HLD, GERD, ?IBS, constipation, OA, schizoaffective disorder, depression tonsillectomy, breast reduction, ?hysterectomy FH: Family History: Other (not sure) Social History: Smoke: Quit ALCOHOL: none Drugs: None ROS: GEN: Denies fevers, chills, sweats HEENT: Denies blurred vision, sore throat CV: +chest pain RESP: Denies shortness of air, cough GI: Per HPI : Denies hematuria, dysuria ENDO: +weight gain NEURO: Denies confusion, dizziness MSK: +lower back pain SKIN: Denies jaundice, pruritus Vitals: Vitals: Vital Signs Date Time Temp Pulse Resp B/P (MAP) Pulse Ox O2 Delivery O2 Flow Rate FiO2 07/14/18 11:15 98.4 107 18 140/86 (104) 93 Room Air 98.4 Labs: Labs: Laboratory Tests Test 07/14/18 11:25 White Blood Count 5.2 x10^3/uL (4.0-11.0) Red Blood Count 4.32 x10^6/uL (3.50-5.40) Hemoglobin 13.9 g/dL (12.0-15.5) Hematocrit 40.4 % (36.0-47.0) Mean Corpuscular Volume 93 fL (79-100) Mean Corpuscular Hemoglobin 32 pg (25-35) Mean Corpuscular Hemoglobin Concent 35 g/dL (31-37) Red Cell Distribution Width 12.9 % (11.5-14.5) Platelet Count 362 x10^3/uL (140-400) Neutrophils (%) (Auto) 78 % (31-73) Lymphocytes (%) (Auto) 14 % (24-48) Monocytes (%) (Auto) 7 % (0-9) Eosinophils (%) (Auto) 2 % (0-3) Basophils (%) (Auto) 0 % (0-3) Neutrophils # (Auto) 4.1 x10^3uL (1.8-7.7) Lymphocytes # (Auto) 0.7 x10^3/uL (1.0-4.8) Monocytes # (Auto) 0.3 x10^3/uL (0.0-1.1) Eosinophils # (Auto) 0.1 x10^3/uL (0.0-0.7) Basophils # (Auto) 0.0 x10^3/uL (0.0-0.2) Sodium Level 137 mmol/L (136-145) Potassium Level 3.5 mmol/L (3.5-5.1) Chloride Level 103 mmol/L (98-107) Carbon Dioxide Level 28 mmol/L (21-32) Anion Gap 6 (6-14) Blood Urea Nitrogen 10 mg/dL (7-20) Creatinine 1.2 mg/dL (0.6-1.0) Estimated GFR (Cockcroft-Gault) 57.1 BUN/Creatinine Ratio 8 (6-20) Glucose Level 95 mg/dL (70-99) Calcium Level 9.2 mg/dL (8.5-10.1) Total Bilirubin 0.6 mg/dL (0.2-1.0) Aspartate Amino Transf (AST/SGOT) 21 U/L (15-37) Alanine Aminotransferase (ALT/SGPT) 22 U/L (14-59) Alkaline Phosphatase 79 U/L (46-116) Troponin I Quantitative < 0.017 ng/mL (0.000-0.055) Total Protein 8.1 g/dL (6.4-8.2) Albumin 3.6 g/dL (3.4-5.0) Albumin/Globulin Ratio 0.8 (1.0-1.7) Lipase 63 U/L (73-393) Allergies: Coded Allergies: Penicillins (Unverified Allergy, Intermediate, "i dont know", 07/14/18) levofloxacin (Verified Allergy, Intermediate, 07/14/18) topiramate (Verified Allergy, Intermediate, 07/14/18) Medications: Current Medications Medications (Trade) Dose Ordered Sig/Cash Route PRN Reason Start Time Stop Time Status Last Admin Dose Admin Multi-Ingredient Mouthwash/Gargle (Gi Cocktail) 20 ml 1X ONCE SWSW 07/14/18 11:45 07/14/18 11:46 DC 07/14/18 11:55 Aspirin (Children'S Aspirin) 324 mg 1X ONCE PO 07/14/18 13:30 07/14/18 13:31 DC 07/14/18 13:30 Famotidine (Pepcid) 20 mg 1X ONCE PO 07/14/18 14:30 07/14/18 14:31 DC 07/14/18 14:25 Multi-Ingredient Mouthwash/Gargle (Gi Cocktail) 20 ml 1X ONCE SWSW 07/14/18 14:30 07/14/18 14:31 DC 07/14/18 14:26 Imaging: Imaging: CXR Impression: No active disease. PE: GEN: NAD HEENT: Atraumatic, PERRL LUNGS: CTAB HEART: RRR ABD: NABS, S/ND/NT EXTREMITY: No edema SKIN: No rashes, no jaundice NEURO/PSYCH: A & O 3 A/P: A/P: Chest pain - chronic/recurrent ?globus/dysphagia, nausea, belching, bloating GERD - restarted PPI last week H/o constipation - apparently controlled ?on Amitiza CRC screen - colonoscopy 04/2017 ?recent bleeding - vaginal vs rectal - Hgb WNL -- Questionable historian. Symptoms possibly related to GERD, though globus/dysphagia issues difficult to discern along w/ possible recent bleeding. She seemed to eat without issue in the ER. Agree w/ PPI. Could consider esophagram, EGD, GB imaging... - will start w/ KUB and review additional recommendations w/ Dr. Barrow. Hgb, BUN, and MCV normal. Would monitor for recurrent bleeding and consider checking fecal occult. ABBEY DEVINE Jul 14, 2018 16:17
[2018-07-14] MEDS ORDERED: LIDO:MAALOX 1:1 20 ML SINGLE DOSE. PO PRN (16:30)
[2018-07-14] MEDS ORDERED: CALCIUM CARBONATE 500 MG TAB.CHEW PO PRN (16:30)
[2018-07-14] MEDS: PANTOPRAZOLE 40 MG TABLET.DR. PO SCH (16:30)
[2018-07-14] MEDS ORDERED: MONT10TA9 PO (17:18)
[2018-07-14] MEDS ORDERED: FEXO180T16 PO (17:18)
[2018-07-14] MEDS ORDERED: BREX3TAB PO (17:18)
[2018-07-14] MEDS ORDERED: PREN1TAB58 PO (17:18)
[2018-07-14] MEDS ORDERED: ACETAMINOPHEN 325 MG TABLET. PO PRN (17:45)
[2018-07-14] MEDS ORDERED: PANTOPRAZOLE 40 MG TABLET.DR. PO SCH (17:45)
[2018-07-14] MEDS ORDERED: POTASSIUM CHLORIDE 20 MEQ TABLET.ER. PO ONE (17:45)
--- NOTE | 2018-07-14 18:03 | PDOC ---
Provider Note Provider Note Patient seen. History and Physical dictated. See dictation# [id number] ANNA GALLEGO MD Jul 14, 2018 18:03
[2018-07-14] MEDS ORDERED: CONTRAST GIVEN. MC PRN (18:45)
[2018-07-14] MEDS ORDERED: IOHEXOL 300 MG/ML 100ML VIAL. IV ONE (18:45)
[2018-07-14 19:10] VITALS: BP 129/81
--- NOTE | 2018-07-14 19:37 | HP ---
ADMIT DATE: 07/14/2018 HISTORY OF PRESENT ILLNESS: This 53-year-old -Swiss female who has schizophrenia and who has flight of ideas quite frequently, called our office yesterday with lot of symptoms. Yesterday, she was advised to go to the Emergency Room. Today also she called this morning with complaints of diarrhea 3-5 times. She also had some shortness of breath, chest discomfort and pain in the throat. She denies any palpitations, nausea, vomiting or dizziness. In the Emergency Room, the patient was evaluated and because of her chest pain and multiple complaints, patient was admitted for further evaluation and management and consultation was obtained with silk snapper and GI doctor. The patient is a very poor historian and she changes her stories quite frequently, although she does consistently say that she has heartburn, some difficulty swallowing at times and also has diarrhea and abdominal pain. She denies any cold or cough or congestion. She denies any fever, chills, palpitations. She does admit to occasional shortness of breath. Again, she is a very poor historian. Sometimes she will change her story and says something else. Next time, she will say that she has vaginal bleeding and she has been bleeding from both ends, but then she will not be able to give you more details. She has had hysterectomy in 09/2017. It is difficult to get accurate information from her. REVIEW OF SYSTEMS: As noted in the history of present illness. Other systems reviewed and are negative. The patient does not think that she ate anything unusual. Other systems reviewed and are negative. PAST MEDICAL HISTORY: The patient has history of schizophrenia, depression, hypertension, gastroesophageal reflux disease, anxiety. The patient has history of constipation and has been on Amitiza in the past, possible history of liver problems. PAST SURGICAL HISTORY: The patient had tonsillectomy and breast reduction surgery. SOCIAL HISTORY: No history of alcoholism, smoking or drug abuse. ALLERGIES: THE PATIENT IS ALLERGIC TO PENICILLIN, LEVOFLOXACIN AND TOPIRAMATE. FAMILY HISTORY: Sister had cardiovascular disease, sister had carcinoma of breast and sister has diabetes mellitus. These are 3 different sisters with different problems. MEDICATIONS: Reviewed and reconciled. Some of the medications may not be available. I am not sure if she is on Latuda or not. Unable to verify information with pharmacy. OBJECTIVE: VITAL SIGNS: Temperature 98.4, pulse 107 per minute, respirations 18 per minute, blood pressure 140/86 mmHg. GENERAL: The patient is alert, oriented x 3, not in any acute distress. EYES: Pupils equal, reacting to light. Conjunctivae pink. Sclerae white. HENT: Throat is not congested, but there is a soft tissue structure that is mass-like posterior to the tongue, likely in the hypopharynx area. No bleeding or any other swelling or lymphadenopathy noted. NECK: JVP normal. No thyromegaly. LUNGS: Decreased breath sounds at bases. CARDIOVASCULAR: S1, S2 regular. CHEST: Nontender. ABDOMEN: Soft, nontender, no guarding, no rigidity. Bowel sounds present. RECTAL: Not done. PELVIC: Not done. EXTREMITIES: No edema, no cyanosis, no calf tenderness. NEUROLOGIC: Alert and oriented. LABORATORY FINDINGS: Sodium 137, potassium 3.5, BUN 10, creatinine 1.2, albumin 3.6, lipase 63, AST 21, ALT 22. WBC count 5.2, hemoglobin 13.9, platelet count is 362,000. Chest x-ray did not show any acute abnormalities. KUB is pending. IMPRESSION: 1. Chest pain, atypical. 2. Possible acute gastroenteritis. 3. Gastroesophageal reflux disease. 4. Dysphagia. The patient has a mass-like structure in the oral cavity behind the tongue. 5. Schizophrenia. 6. Hypokalemia. 7. Hypertension. 8. Dysphagia. PLAN: I will replace potassium supplements. Consult Dr. Barrow for GI evaluation and management and Dr. Marie for cardiology evaluation and management. We will get serial EKG and enzymes. So far they are negative. EKG showed some flattening of T waves in V5 and V6. I compared with my recent EKG, but either technical artifacts in V5 and V6. Rest of the EKG did not show any significant change. Old EKG in [address]-T segments. The patient is a very, very poor historian and difficult to assess her problems, but we will get a CT scan of neck tomorrow morning and also a barium swallow. No ENT specialist is available, so we will continue other treatment. For details, please refer to the orders. ANNA GALLEGO MD DR: PILAR/rowan JOB#: [id number] / [id number]
[2018-07-14] MEDS ORDERED: MONTELUKAST SODIUM 10 MG TABLET. PO SCH (21:00)
[2018-07-14 22:45] VITALS: BP 108/69
[2018-07-15 03:00] VITALS: BP 120/68
[2018-07-15 06:32] LABS: CALCIUM 8.8 mg/dL (8.5-10.1); GFR 70.5; POTASSIUM 4.5 mmol/L (3.5-5.1)
[2018-07-15] MEDS: PANTOPRAZOLE 40 MG TABLET.DR. PO SCH ×2 (06:35→12:28)
[2018-07-15 06:37] LABS: CHOLESTEROL/HDL RATIO 3.1
[2018-07-15 07:00] VITALS: BP 126/77
--- NOTE | 2018-07-15 07:40 | RAD ---
Portable abdomen, 07/14/2018: HISTORY: Epigastric pain, nausea There is a moderate amount gas in large and small bowel in the upper abdomen in a nonspecific pattern. There is no evidence organomegaly. There are mild degenerative changes in the spine. IMPRESSION: No acute abdominal abnormality is detected. Electronically signed by: Yonatan Priest MD (07/15/2018 7:36 AM) [facility]
[2018-07-15] MEDS ORDERED: SIMETHICONE/SOD BICARB/CITRIC ACID PACKET. PO ONE (08:00)
[2018-07-15] MEDS ORDERED: BARIUM SULFATE 60% 355 ML SUSP PO ONE (08:00)
[2018-07-15] MEDS ORDERED: BARIUM SULFATE 340 GM SUSPENSION. PO ONE (08:00)
[2018-07-15] MEDS ORDERED: LOSARTAN POTASSIUM 50 MG TABLET. PO SCH (09:00)
[2018-07-15] MEDS ORDERED: CETIRIZINE HCL 10 MG TABLET. PO SCH (09:00)
[2018-07-15] MEDS ORDERED: hydroCHLOROthiazide 12.5 MG CAPSULE PO SCH (09:00)
[2018-07-15] MEDS ORDERED: CITALOPRAM 20 MG TABLET. PO SCH (09:00)
[2018-07-15] MEDS ORDERED: ATENOLOL 25 MG TABLET. PO SCH (09:00)
--- NOTE | 2018-07-15 09:10 | RAD ---
CT of the neck with contrast, 07/14/2018: HISTORY: Possible neck mass, chest pain, belching and burning Multidetector CT imaging was performed following an IV bolus injection of iodinated contrast material. The laryngeal region is unremarkable. No airway narrowing is evident. The parotid and submandibular glands are symmetric. No cervical adenopathy is seen. The right lobe of the thyroid gland is slightly larger than the left. The thyroid gland is heterogeneous. At least one small subcentimeter low density nodule is noted in the right lobe. A calcification is also noted in the right lobe. Mild scattered degenerative changes are present in the cervical spine. Bilateral pleural irregularities in the upper chest are probably due to scarring. IMPRESSION: 1. Mildly heterogeneous thyroid gland containing at least one nodule and calcification on the right. Thyroid ultrasound may be useful for further evaluation. 2. The CT of the neck is otherwise unremarkable. PQRS Compliance Statement: One or more of the following individualized dose reduction techniques were utilized for this examination: 1. Automated exposure control 2. Adjustment of the mA and/or kV according to patient size 3. Use of iterative reconstruction technique Electronically signed by: Yonatan Priest MD (07/15/2018 9:06 AM) [facility]
--- NOTE | 2018-07-15 10:04 | CARD ---
MR#: [id number] Date of Study: 07/15/2018 Ordering Physician: ANDREW MARIE, Referring Physician: ANNA GALLEGO Tech: Jackie Irby LOCO APPROVED REPORT EXAM: Two-dimensional and M-mode echocardiogram with Doppler and color Doppler. Other Information Quality : AverageHR: 62bpm Rhythm : NSR INDICATION Chest Pain 2D DIMENSIONS RVDd2.1 (2.9-3.5cm)Left Atrium(2D)3.1 (1.6-4.0cm) IVSd1.0 (0.7-1.1cm)Aortic Root(2D)2.6 (2.0-3.7cm) LVDd4.6 (3.9-5.9cm)LVOT Diameter1.8 (1.8-2.4cm) PWd0.8 (0.7-1.1cm)LVDs2.8 (2.5-4.0cm) FS (%) 39.7 %SV69.2 ml LVEF(%)70.3 (>50%) M-Mode DIMENSIONS Left Atrium(MM)3.05 (2.5-4.0cm)Aortic Root2.82 (2.2-3.7cm) Aortic Valve AoV Peak Mynor.127.5cm/sAoV VTI26.9cm AO Peak GR.6.5mmHgLVOT Peak Mynor.76.6cm/s AO Mean GR.3mmHgAVA (VMAX)1.49cm2 JAN (VTI)1.70cm2 Mitral Valve MV E Gzprseia27.6cm/sMV DECEL [id number] MV A Uyhedicn65.1cm/sE/A Ratio1.3 MV A [id number] Pulmonary Valve PV Peak Dyziykqn259.8cm/s Tricuspid Valve TR P. Mrqdawre539fj/sRAP FRCCQUAK2rxJk TR Peak Gr.81ezVpYNMP83yqMi Pulmonary Vein S1 Nlkrcecd55.8cm/sD2 Bwhzgjyb57.9cm/s PVa [id number] LEFT VENTRICLE The left ventricle is normal size. There is normal left ventricular wall thickness. The left ventricu lar systolic function is normal. The Ejection Fraction is 65-70%. There is normal LV segmental wall m otion. The left ventricular diastolic function and filling is normal for age. RIGHT VENTRICLE The right ventricle is normal size. There is normal right ventricular wall thickness. The right ventr icular systolic function is normal. ATRIA The left atrium size is normal. The right atrium size is normal. The interatrial septum is intact wit h no evidence for an atrial septal defect or patent foramen ovale as noted on 2-D or Doppler imaging. AORTIC VALVE The aortic valve is normal in structure and function. The aortic valve is trileaflet. Doppler and Col or Flow revealed no significant aortic regurgitation. There is no significant aortic valvular stenosi s. MITRAL VALVE The mitral valve is normal in structure and function. There is no evidence of mitral valve prolapse. There is no mitral valve stenosis. Doppler and Color-flow revealed trace to mild mitral regurgitation . TRICUSPID VALVE The tricuspid valve is normal in structure and function. Doppler and Color Flow revealed trace tricus pid regurgitation. The PA pressure was estimated at 28 mmHg. There is no tricuspid valve prolapse or vegetation. There is no tricuspid valve stenosis. PULMONIC VALVE Pulmonic valve not well visualized. GREAT VESSELS The aortic root is normal in size. The ascending aorta is normal in size. The IVC is normal in size a nd collapses >50% with inspiration. PERICARDIAL EFFUSION There is no evidence of significant pericardial effusion. Critical Notification Critical Value: No <Conclusion> The left ventricular systolic function is normal. The Ejection Fraction is 65-70%. Trace to mild mitral regurgitation. Trace tricuspid regurgitation. The PA pressure was estimated at 28 mmHg. There is no evidence of significant pericardial effusion. Signed by : Samir Marie, Electronically Approved : 07/15/2018 10:02:17
--- NOTE | 2018-07-15 10:28 | RAD ---
Esophagram, 07/15/2018: History: Crampy feeling in throat, pain The study was performed utilizing high density and thin liquid barium. 2.2 minutes of fluoroscopy time was utilized. 6 dynamic fluoroscopic sequences were recorded. The swallowing mechanism is intact. There is no obstruction to flow of the barium through the cervical esophagus. No laryngeal penetration or aspiration was evident. The esophageal peristalsis is unremarkable. There is mild smooth narrowing of the distal esophagus approximately 3 cm above the GE junction. The esophagus opens up to a maximal diameter of approximately 1 cm at this level. No hiatal hernia or gastroesophageal reflux was demonstrated. IMPRESSION: 1. Mild smooth narrowing of the distal esophagus. 2. No other significant abnormality is detected.
--- NOTE | 2018-07-15 10:40 | DISCH ---
DISCHARGE INSTRUCTIONS Condition on Discharge Condition on Discharge: Stable Activity After Discharge Activity Instructions for Disc: Activity as tolerated Weight Bearing Status after Di: No restrictions Diet after Discharge Diet after Discharge: Cardiac Diet Texture: Regular Liquid Texture: Thin Liquid Contacting the DRTessa after DC Call your doctor for: Concerns you may have Follow-Up Follow up with: Dr. ANNA Gallego in 5 days. ANNA GALLEGO MD Jul 15, 2018 10:39
--- NOTE | 2018-07-15 10:50 | PDOC3 ---
IM DISCHARGE SUMMARY Date of Admission Date of Admission Date of Admission: Jul 14, 2018 at 12:45 Date of Discharge Date of Discharge July 15, 2018. Primary Diagnosis Primary Diagnosis 1. Chest pain, atypical. 2. Possible acute gastroenteritis. 3. Gastroesophageal reflux disease. 4. Dysphagia. The patient has a mass-like structure in the oral cavity behind the tongue. 5. Schizophrenia. 6. Hypokalemia. 7. Hypertension. 8. Dysphagia. 9. Soft tissue mass oral cavity Consults Consults Godwin Nguyễn MD Labs Labs Laboratory Tests Test 07/14/18 11:25 07/14/18 18:05 07/15/18 00:10 07/15/18 05:50 White Blood Count 5.2 x10^3/uL (4.0-11.0) Red Blood Count 4.32 x10^6/uL (3.50-5.40) Hemoglobin 13.9 g/dL (12.0-15.5) Hematocrit 40.4 % (36.0-47.0) Mean Corpuscular Volume 93 fL (79-100) Mean Corpuscular Hemoglobin 32 pg (25-35) Mean Corpuscular Hemoglobin Concent 35 g/dL (31-37) Red Cell Distribution Width 12.9 % (11.5-14.5) Platelet Count 362 x10^3/uL (140-400) Neutrophils (%) (Auto) 78 % (31-73) Lymphocytes (%) (Auto) 14 % (24-48) Monocytes (%) (Auto) 7 % (0-9) Eosinophils (%) (Auto) 2 % (0-3) Basophils (%) (Auto) 0 % (0-3) Neutrophils # (Auto) 4.1 x10^3uL (1.8-7.7) Lymphocytes # (Auto) 0.7 x10^3/uL (1.0-4.8) Monocytes # (Auto) 0.3 x10^3/uL (0.0-1.1) Eosinophils # (Auto) 0.1 x10^3/uL (0.0-0.7) Basophils # (Auto) 0.0 x10^3/uL (0.0-0.2) Sodium Level 137 mmol/L (136-145) 140 mmol/L (136-145) Potassium Level 3.5 mmol/L (3.5-5.1) 4.5 mmol/L (3.5-5.1) Chloride Level 103 mmol/L (98-107) 106 mmol/L (98-107) Carbon Dioxide Level 28 mmol/L (21-32) 28 mmol/L (21-32) Anion Gap 6 (6-14) 6 (6-14) Blood Urea Nitrogen 10 mg/dL (7-20) 12 mg/dL (7-20) Creatinine 1.2 mg/dL (0.6-1.0) 1.0 mg/dL (0.6-1.0) Estimated GFR (Cockcroft-Gault) 57.1 70.5 BUN/Creatinine Ratio 8 (6-20) Glucose Level 95 mg/dL (70-99) 92 mg/dL (70-99) Calcium Level 9.2 mg/dL (8.5-10.1) 8.8 mg/dL (8.5-10.1) Total Bilirubin 0.6 mg/dL (0.2-1.0) Aspartate Amino Transf (AST/SGOT) 21 U/L (15-37) Alanine Aminotransferase (ALT/SGPT) 22 U/L (14-59) Alkaline Phosphatase 79 U/L (46-116) Troponin I Quantitative < 0.017 ng/mL (0.000-0.055) < 0.017 ng/mL (0.000-0.055) < 0.017 ng/mL (0.000-0.055) < 0.017 ng/mL (0.000-0.055) Total Protein 8.1 g/dL (6.4-8.2) Albumin 3.6 g/dL (3.4-5.0) Albumin/Globulin Ratio 0.8 (1.0-1.7) Lipase 63 U/L (73-393) Triglycerides Level 58 mg/dL (0-150) Cholesterol Level 167 mg/dL (0-200) LDL Cholesterol, Calculated 101 mg/dL (0-100) VLDL Cholesterol, Calculated 12 mg/dL (0-40) Non-HDL Cholesterol Calculated 113 mg/dL (0-129) HDL Cholesterol 54 mg/dL (40-60) Cholesterol/HDL Ratio 3.1 Brief hospital course Brief hospital course This 53-year-old -[place] female who has schizophrenia and who has flight of ideas quite frequently, called our office yesterday with lot of symptoms. Yesterday, she was advised to go to the Emergency Room. Today also she called this morning with complaints of diarrhea 3-5 times. She also had some shortness of breath, chest discomfort and pain in the throat. She denies any palpitations, nausea, vomiting or dizziness. In the Emergency Room, the patient was evaluated and because of her chest pain and multiple complaints, patient was admitted for further evaluation and management and consultation was obtained with office clin asst and GI doctor. The patient is a very poor historian and she changes her stories quite frequently, although she does consistently say that she has heartburn, some difficulty swallowing at times and also has diarrhea and abdominal pain. She denies any cold or cough or congestion. She denies any fever, chills, palpitations. She does admit to occasional shortness of breath. Again, she is a very poor historian. Sometimes she will change her story and says something else. Next time, she will say that she has vaginal bleeding and she has been bleeding from both ends, but then she will not be able to give you more details. She has had hysterectomy in 09/2017. It is difficult to get accurate information from her. For more details regarding the past history, family history, social history, surgical history and other details, please refer to History and Physical. I will replace potassium supplements. Consult Dr. Barrow for GI evaluation and management and Dr. Marie for cardiology evaluation and management. We will get serial EKG and enzymes. So far they are negative. EKG showed some flattening of T waves in V5 and V6. I compared with my recent EKG, but either technical artifacts in V5 and V6. Rest of the EKG did not show any significant change. Old EKG in [address]-T segments. The patient is a very, very poor historian and difficult to assess her problems, but we will get a CT scan of neck tomorrow morning and also a barium swallow. No ENT specialist is available, so we will continue other treatment. For details, please refer to the orders. Esophagram, 07/15/2018: History: Crampy feeling in throat, pain The study was performed utilizing high density and thin liquid barium. 2.2 minutes of fluoroscopy time was utilized. 6 dynamic fluoroscopic sequences were recorded. The swallowing mechanism is intact. There is no obstruction to flow of the barium through the cervical esophagus. No laryngeal penetration or aspiration was evident. The esophageal peristalsis is unremarkable. There is mild smooth narrowing of the distal esophagus approximately 3 cm above the GE junction. The esophagus opens up to a maximal diameter of approximately 1 cm at this level. No hiatal hernia or gastroesophageal reflux was demonstrated. IMPRESSION: 1. Mild smooth narrowing of the distal esophagus. 2. No other significant abnormality is detected. CT scan of head with contrast. IMPRESSION: 1. Mildly heterogeneous thyroid gland containing at least one nodule and calcification on the right. Thyroid ultrasound may be useful for further evaluation. 2. The CT of the neck is otherwise unremarkable. Because of the thyroid nodule I ordered a thyroid sonogram. Echocardiogram is normal and cardiac enzymes are also normal. She had some hallucinations last night and I have discussed with the pharmacy this morning to make sure that they allow her to take her home medications as we do not have those medications at this hospital. Clinically she is doing better now and she remains stable. If it is okay with the office clin asst and the GI specialist we may be able to discharge her later this afternoon. Condition at the time of discharge better. Disposition home. See me in the office in 5 days. Her short-term and long-term prognosis is poor due to her multiple medical problems and schizophrenia and issues with her thought process. For the soft tissue oral cavity mass in the hypopharynx that I noted I will consult an ENT specialist as outpatient. Medications Medications reviewed and reconciled for discharge. Allergy Allergies Coded Allergies Type Severity Reaction Last Updated Verified Penicillins Allergy Intermediate "i dont know" 07/14/18 No levofloxacin Allergy Intermediate 07/14/18 Yes topiramate Allergy Intermediate 07/14/18 Yes Follow up in 5 days. DISPOSITION: Home Comments Discharge Management - 35 minutes. For other details please refer to discharge instructions ANNA GALLEGO MD Jul 15, 2018 10:50
[2018-07-15 11:00] VITALS: BP 138/72
--- NOTE | 2018-07-15 11:03 | PDOC ---
Subjective: Subjective: Had some stomach pain earlier, none now. Asks to eats. Had some belching. Denies any recurrent dysphagia. Objective: Objective: Has discharge orders. Reviewed w/ RN - some hallucinating yesterday, thought left breast was growing. Then this morning said she was having her period - RN checked, no bleeding. No GI concerns per RN. Vital Signs: Vital Signs Date Time Temp Pulse Resp B/P (MAP) Pulse Ox O2 Delivery O2 Flow Rate FiO2 07/15/18 07:00 98.4 57 18 126/77 (93) 97 Room Air 98.4 Labs: Laboratory Tests Test 07/14/18 11:25 07/14/18 18:05 07/15/18 00:10 07/15/18 05:50 White Blood Count 5.2 x10^3/uL Red Blood Count 4.32 x10^6/uL Hemoglobin 13.9 g/dL Hematocrit 40.4 % Mean Corpuscular Volume 93 fL Mean Corpuscular Hemoglobin 32 pg Mean Corpuscular Hemoglobin Concent 35 g/dL Red Cell Distribution Width 12.9 % Platelet Count 362 x10^3/uL Neutrophils (%) (Auto) 78 % Lymphocytes (%) (Auto) 14 % Monocytes (%) (Auto) 7 % Eosinophils (%) (Auto) 2 % Basophils (%) (Auto) 0 % Neutrophils # (Auto) 4.1 x10^3uL Lymphocytes # (Auto) 0.7 x10^3/uL Monocytes # (Auto) 0.3 x10^3/uL Eosinophils # (Auto) 0.1 x10^3/uL Basophils # (Auto) 0.0 x10^3/uL Sodium Level 137 mmol/L 140 mmol/L Potassium Level 3.5 mmol/L 4.5 mmol/L Chloride Level 103 mmol/L 106 mmol/L Carbon Dioxide Level 28 mmol/L 28 mmol/L Anion Gap 6 6 Blood Urea Nitrogen 10 mg/dL 12 mg/dL Creatinine 1.2 mg/dL 1.0 mg/dL Estimated GFR (Cockcroft-Gault) 57.1 70.5 BUN/Creatinine Ratio 8 Glucose Level 95 mg/dL 92 mg/dL Calcium Level 9.2 mg/dL 8.8 mg/dL Total Bilirubin 0.6 mg/dL Aspartate Amino Transf (AST/SGOT) 21 U/L Alanine Aminotransferase (ALT/SGPT) 22 U/L Alkaline Phosphatase 79 U/L Troponin I Quantitative < 0.017 ng/mL < 0.017 ng/mL < 0.017 ng/mL < 0.017 ng/ mL Total Protein 8.1 g/dL Albumin 3.6 g/dL Albumin/Globulin Ratio 0.8 Lipase 63 U/L Triglycerides Level 58 mg/dL Cholesterol Level 167 mg/dL LDL Cholesterol, Calculated 101 mg/dL VLDL Cholesterol, Calculated 12 mg/dL Non-HDL Cholesterol Calculated 113 mg/dL HDL Cholesterol 54 mg/dL Cholesterol/HDL Ratio 3.1 Imaging: KUB IMPRESSION: No acute abdominal abnormality is detected. Soft Tissue Neck CT IMPRESSION: 1. Mildly heterogeneous thyroid gland containing at least one nodule and calcification on the right. Thyroid ultrasound may be useful for further evaluation. 2. The CT of the neck is otherwise unremarkable. Barium Swallow IMPRESSION: 1. Mild smooth narrowing of the distal esophagus. 2. No other significant abnormality is detected. PE: GEN: NAD LUNGS: CTAB HEART: RRR ABD: S/ND/NT NEURO/PSYCH: A & O 3, gives odd history A/P: Atypical chest pain GERD, ?globus/dysphagia Schizophrenia, ?hallucinations -- Has discharge orders. Barium swallow results noted as above w/ mild smooth narrowing of the distal esophagus - can follow-up for EGD as outpt. Continue PPI. Neck CT noted, defer to primary. ABBEY DEVINE Jul 15, 2018 11:03
[2018-07-15 12:30] VITALS: BP 134/73
--- NOTE | 2018-07-15 15:04 | NUR ---
SS following for discharge planning. SS reviewed pt chart. Pt is from home and currently on room air. No discharge needs noted at this time. SS will continue to follow for pending discharge needs.
--- NOTE | 2018-07-15 15:09 | RAD ---
Thyroid ultrasound, 07/15/2018: HISTORY: Abnormal thyroid on CT scan The right lobe of the gland measures 6 x 2.4 x 2.3 cm while the left lobe of the gland measures 4.5 x 1.8 x 1.9 cm. The thyroid echo pattern is heterogeneous. Multiple bilateral thyroid nodules are present. There are 2 confluent nodules in the lower pole the right lobe which cannot be clearly from each other. These are solid, heterogeneous nodules one of which measures approximately 1.6 cm in greatest dimension while the adjacent nodule measures 1.[address] study demonstrated at least one tiny calcification within this process, although not well defined on the ultrasound exam. There are multiple smaller nodules in the left lobe of the gland. There is one cyst evident superiorly in the left lobe as well as multiple small subcentimeter slightly hypoechoic nodules. There is a 9 mm mixed cystic and solid nodule present posteriorly in the left lobe. IMPRESSION: Multinodular thyroid gland as described above. The sonographic characteristics of these nodules are nonspecific. Ultrasound-guided biopsy of the dominant confluent nodules in the lower pole of the right lobe of the gland is suggested for further evaluation. Electronically signed by: Yonatan Priest MD (07/15/2018 3:04 PM) [facility]
[2018-07-15 15:26] VITALS: BP 129/87
[2018-07-15] MEDS ORDERED: PANT20TA2 PO ×2 (16:50→16:53)
--- NOTE | 2018-07-15 18:36 | NUR ---
Discharge Note: SENAIT LUCERO [address] [place] [address] Discharge instructions and discharge home medications reviewed with Patient and a copy given. All questions have been answered and understanding verbalized. The following instructions and handouts were given: GERD, GERD dietary recommendations. Discontinued lines and drains: right A/C Patient discharged to home with sister via home.
== END 2018-07-15 17:30 | disposition home or self-care (01) ==
LOC: ER 11:13 → ED HOLD 12:45 → 2 NORTH 15:37
PROVIDERS: ADMIT Internal Medicine; ATTEND Internal Medicine
DX: R07.89 Other chest pain (principal); F32.9 Major depressive disorder, single episode, unspecified; I10 Essential (primary) hypertension; F25.9 Schizoaffective disorder, unspecified; R19.7 Diarrhea, unspecified; K21.9 Gastro-esophageal reflux disease without esophagitis; F41.9 Anxiety disorder, unspecified; K59.00 Constipation, unspecified; Z80.3 Family history of malignant neoplasm of breast; Z82.49 Family history of ischemic heart disease and other diseases of the circulatory system; Z83.3 Family history of diabetes mellitus; R13.10 Dysphagia, unspecified; E87.6 Hypokalemia; R06.02 Shortness of breath; R10.9 Unspecified abdominal pain; Z90.710 Acquired absence of both cervix and uterus; R44.3 Hallucinations, unspecified
CPT/HCPCS: 36415; 70491; 71045; 74018; 74220; 76536; 80048; 80053; 80061; 83690; 84484; 85025; 93005; 93306; 99284; G0378; Q9967; G0379

== ENCOUNTER 2019-05-23 11:00 | Emergency (ER) | payer MEDICARE ==
[~2019-05-23] VITALS: Ht 162.6 cm; Wt 63.5 kg
[~2019-05-23 11:00] MED LIST changes: +BREX3TAB PO; +FEXO180T16 PO; +MONT10TA49 PO; +OMEP40CA45 PO; -OMEP40CA5 PO; +PANT20TA2 PO; +PREN1TAB58 PO; +SIMV20TA18 PO; -SIMV20TA3 PO
--- NOTE | 2019-05-23 11:15 | PHYS DOC ---
Past Medical History Past Medical History: Depression, Hypertension, Schizophrenia, Other Additional Past Medical Histor: liver problems, bowel problems Past Surgical History: Tonsillectomy, Other Additional Past Surgical Histo: breast reduction Alcohol Use: None Drug Use: None Adult General HPI HPI Patient is a 53 year old female who presents with generalized weakness and abdominal pain has been ongoing for last several days. Patient was brought to the ER by EMS and when EMS got to her home her blood pressure laying down was 82/40. The patient states she's been having difficulty walking over the last week and getting around. She rates her pain as 10 out of 10 in severity on arrival to the ER. She does state however that the pain has let up. Review of Systems Review of Systems Constitutional: Reports generalized weakness. Denies fever or chills [] Eyes: Denies change in visual acuity, redness, or eye pain [] HENT: Denies nasal congestion or sore throat [] Respiratory: Denies cough or shortness of breath [] Cardiovascular: No additional information not addressed in HPI [] GI: Reports abdominal pain, denies nausea, vomiting, bloody stools or diarrhea [] : Denies dysuria or hematuria [] Musculoskeletal: Denies back pain or joint pain [] Integument: Denies rash or skin lesions [] Neurologic: Denies headache, focal weakness or sensory changes [] Endocrine: Denies polyuria or polydipsia [] Complete systems were reviewed and found to be within normal limits, except as documented in this note. Current Medications Current Medications Current Medications Medications (Trade) Dose Ordered Sig/Csah Start Time Stop Time Status Last Admin Dose Admin Info (CONTRAST GIVEN -- Rx MONITORING) 1 each PRN DAILY PRN 05/23/19 12:30 05/25/19 12:29 Iohexol (Omnipaque 300 Mg/ml) 60 ml 1X ONCE 05/23/19 12:30 05/23/19 12:31 DC 05/23/19 12:35 60 ML Allergies Allergies Allergies Coded Allergies Type Severity Reaction Last Updated Verified Penicillins Allergy Intermediate "i dont know" 07/14/18 No levofloxacin Allergy Intermediate 07/14/18 Yes topiramate Allergy Intermediate 07/14/18 Yes Physical Exam Physical Exam Constitutional: Well developed, well nourished, no acute distress, non-toxic appearance. [] HENT: Normocephalic, atraumatic, bilateral external ears normal, oropharynx moist, no oral exudates, nose normal. [] Eyes: PERRLA, EOMI, conjunctiva normal, no discharge. [] Neck: Normal range of motion, no tenderness, supple, no stridor. [] Cardiovascular:Heart rate regular rhythm, no murmur [] Lungs & Thorax: Bilateral breath sounds clear to auscultation [] Abdomen: Bowel sounds normal, soft, diffuse tenderness, no masses, no pulsatile masses. [] Skin: Warm, dry, no erythema, no rash. [] Back: No tenderness, no CVA tenderness. [] Extremities: No tenderness, no cyanosis, no clubbing, ROM intact, no edema. [] Neurologic: Alert and oriented X 3, normal motor function, normal sensory function, no focal deficits noted. [] Psychologic: Affect normal, judgement normal, mood normal. [] Current Patient Data Vital Signs Vital Signs Date Time Temp Pulse Resp B/P (MAP) Pulse Ox O2 Delivery O2 Flow Rate FiO2 05/23/19 11:18 98.1 62 18 123/87 (99) 98 Room Air 98.1 Lab Values Laboratory Tests Test 05/23/19 11:45 05/23/19 13:40 White Blood Count 3.9 x10^3/uL (4.0-11.0) L Red Blood Count 4.19 x10^6/uL (3.50-5.40) Hemoglobin 13.1 g/dL (12.0-15.5) Hematocrit 39.0 % (36.0-47.0) Mean Corpuscular Volume 93 fL (79-100) Mean Corpuscular Hemoglobin 31 pg (25-35) Mean Corpuscular Hemoglobin Concent 34 g/dL (31-37) Red Cell Distribution Width 12.6 % (11.5-14.5) Platelet Count 393 x10^3/uL (140-400) Neutrophils (%) (Auto) 67 % (31-73) Lymphocytes (%) (Auto) 23 % (24-48) L Monocytes (%) (Auto) 6 % (0-9) Eosinophils (%) (Auto) 3 % (0-3) Basophils (%) (Auto) 1 % (0-3) Neutrophils # (Auto) 2.6 x10^3/uL (1.8-7.7) Lymphocytes # (Auto) 0.9 x10^3/uL (1.0-4.8) L Monocytes # (Auto) 0.2 x10^3/uL (0.0-1.1) Eosinophils # (Auto) 0.1 x10^3/uL (0.0-0.7) Basophils # (Auto) 0.0 x10^3/uL (0.0-0.2) Prothrombin Time 13.3 SEC (11.7-14.0) Prothrombin Time INR 1.0 (0.8-1.1) Activated Partial Thromboplast Time 28 SEC (24-38) Sodium Level 139 mmol/L (136-145) Potassium Level 3.7 mmol/L (3.5-5.1) Chloride Level 103 mmol/L (98-107) Carbon Dioxide Level 27 mmol/L (21-32) Anion Gap 9 (6-14) Blood Urea Nitrogen 11 mg/dL (7-20) Creatinine 1.2 mg/dL (0.6-1.0) H Estimated GFR (Cockcroft-Gault) 57.1 BUN/Creatinine Ratio 9 (6-20) Glucose Level 84 mg/dL (70-99) Calcium Level 9.8 mg/dL (8.5-10.1) Magnesium Level 2.2 mg/dL (1.8-2.4) Total Bilirubin 0.4 mg/dL (0.2-1.0) Aspartate Amino Transferase (AST) 24 U/L (15-37) Alanine Aminotransferase (ALT) 19 U/L (14-59) Alkaline Phosphatase 72 U/L (46-116) KQ-Svk-[id number]-Type Natriuretic Peptide 356 pg/mL (0-124) H Total Protein 7.9 g/dL (6.4-8.2) Albumin 4.0 g/dL (3.4-5.0) Albumin/Globulin Ratio 1.0 (1.0-1.7) Urine Collection Type Unknown Urine Color Yellow Urine Clarity Clear Urine pH 7.0 Urine Specific Clayton >=1.030 Urine Protein Negative mg/dL (NEG-TRACE) Urine Glucose (UA) Negative mg/dL (NEG) Urine Ketones (Stick) Trace mg/dL (NEG) Urine Blood Negative (NEG) Urine Nitrite Negative (NEG) Urine Bilirubin Negative (NEG) Urine Urobilinogen Dipstick 0.2 mg/dL (0.2 mg/dL) Urine Leukocyte Esterase Small (NEG) Urine RBC Occ /HPF (0-2) Urine WBC 5-10 /HPF (0-4) Urine Squamous Epithelial Cells Many /LPF Urine Bacteria Few /HPF (0-FEW) Urine Hyaline Casts Moderate /HPF Urine Mucus Mod /LPF Laboratory Tests 05/23/19 11:45 Laboratory Tests 05/23/19 11:45 EKG EKG [] Radiology/Procedures Radiology/Procedures [] Course & Med Decision Making Course & Med Decision Making Pertinent Labs and Imaging studies reviewed. (See chart for details) Will get CT, labs, and urine. CT and labs are unremarkable. Discussed case with Dr. Gallego who asks for patient to be ambulated to see if she is able. Vitals are stable. Patient was able to ambulate without issue. Urine shows leukocytes, will treat with Keflex. Return precautions given. Dragon Disclaimer Dragon Disclaimer This electronic medical record was generated, in whole or in part, using a voice recognition dictation system. Departure Departure Impression: Primary Impression: Urinary tract infection Disposition: HOME, SELF-CARE Condition: STABLE Referrals: ANNA GALLEGO MD (PCP) Patient Instructions: Urinary Tract Infection Additional Instructions: Thank you for visiting [facility]. We appreciate you trusting us with your care. If any additional problems come up don't hesitate to return to visit us. Please follow up with your primary care provider so they can plan additional care if needed and know about the problem that you had. If symptoms worsen come back to the Emergency Department. Any concerning symptoms that start such as chest pain, shortness of air, weakness or numbness on one side of the body, running high fevers or any other concerning symptoms return to the ER. You have been prescribed an antibiotic today to help fight your infection. Please take all of the antibiotic as directed. If after 48 hours the infection is not improving, please return for more care. If the infection worsens, return to ER for additional care. Scripts Cephalexin (KEFLEX) 500 Mg Capsule 1 CAP PO BID for 7 Days, #14 CAP 0 Refills Prov: ABBY QUEEN TOMASZ 05/23/19 Problem Qualifiers Primary Impression: Urinary tract infection Urinary tract infection type: acute cystitis Hematuria presence: without hematuria Qualified Codes: N30.00 - Acute cystitis without hematuria ABBY QUEEN APRN May 23, 2019 11:15
[2019-05-23 11:55] LABS: BASO % 1 % (0-3); EOS # 0.1 x10^3/uL (0.0-0.7); EOS % 3 % (0-3); HEMOGLOBIN 13.1 g/dL (12.0-15.5); LYMPH # 0.9 x10^3/uL (1.0-4.8); LYMPH % 23 % (24-48); MEAN CORPUSCULAR HEMOGLOBIN 31 pg (25-35); MEAN CORPUSCULAR HGB CONC 34 g/dL (31-37); MEAN CORPUSCULAR VOLUME 93 fL (79-100); MONO # 0.2 x10^3/uL (0.0-1.1); MONO % 6 % (0-9); NEUT # 2.6 x10^3/uL (1.8-7.7); NEUT % 67 % (31-73); PLATELET COUNT 393 x10^3/uL (140-400); RED BLOOD COUNT 4.19 x10^6/uL (3.50-5.40); RED CELL DISTRIBUTION WIDTH 12.6 % (11.5-14.5); WHITE BLOOD COUNT 3.9 x10^3/uL (4.0-11.0)
[2019-05-23 12:02] LABS: CALCIUM 9.8 mg/dL (8.5-10.1); CREATININE 1.2 mg/dL (0.6-1.0); GFR 57.1; POTASSIUM 3.7 mmol/L (3.5-5.1)
[2019-05-23 12:04] LABS: PROTHROMBIN TIME PATIENT 13.3 SEC (11.7-14.0)
[2019-05-23 12:08] LABS: MAGNESIUM 2.2 mg/dL (1.8-2.4); TOTAL BILIRUBIN 0.4 mg/dL (0.2-1.0); TOTAL PROTEIN 7.9 g/dL (6.4-8.2)
[2019-05-23] MEDS ORDERED: CONTRAST GIVEN. MC PRN (12:30)
[2019-05-23] MEDS ORDERED: IOHEXOL 300 MG/ML 100ML VIAL. IV ONE (12:30)
--- NOTE | 2019-05-23 12:59 | RAD ---
PQRS Compliance statement: One or more of the following individualized dose reduction techniques were utilized for this examination: 1. Automated exposure control. 2. Adjustment of the mA and/or kV according to patient size. 3. Use of iterative reconstruction technique. Indication: Abdominal pain TECHNIQUE: CT abdomen and pelvis with IV contrast with multiplanar reformats. COMPARISON: None FINDINGS: Heart is normal in size. No pericardial or pleural effusion. Mild bibasilar scarring or atelectasis. Liver, spleen, gallbladder, pancreas, adrenals within normal limits. Simple cyst in the left kidney measuring 6.4 cm. No nephrolithiasis or hydronephrosis. No enlarged retroperitoneal or pelvic adenopathy. No free pelvic fluid or ascites. No bowel obstruction. Fluid-filled colon noted. Moderate distal colonic stool burden. No pneumoperitoneum. Uterus is present. Circumferential urinary bladder wall thickening noted. No urinary bladder stone. No suspicious bony lesion. IMPRESSION: Fluid-filled proximal colon, nonspecific. Clinically correlate with symptoms of diarrhea. No imaging evidence of bowel obstruction. No nephrolithiasis or hydronephrosis. Mild circumferential wall thickening of the urinary bladder may be secondary to suboptimal distention or cystitis. Clinically correlate with urinalysis. Electronically signed by: Kash Wiley DO (05/23/2019 12:56 PM) [id number]
[2019-05-23 13:47] LABS: BILIRUBIN,URINE NEGATIVE (NEG); CLARITY,URINE CLEAR; COLOR,URINE YELLOW; NITRITE,URINE NEGATIVE (NEG); PROTEIN,URINE NEGATIVE (NEG-TRACE); UROBILINOGEN,URINE 0.2 mg/dL (0.2 mg/dL)
[2019-05-23 14:04] LABS: HYALINE CASTS, URINE MODERATE /HPF; SQUAMOUS EPITHELIAL CELL,UR MANY /LPF
[2019-05-23 14:06] LABS: BACTERIA,URINE FEW /HPF (0-FEW); RBC,URINE OCC /HPF (0-2)
[2019-05-23] MEDS ORDERED: CEPH-264 PO (14:23)
[2019-05-23 14:30] VITALS: BP 138/75
== END 2019-05-23 14:35 | disposition home or self-care (01) ==
LOC: ER 11:00
DX: N30.00 Acute cystitis without hematuria (principal); R53.1 Weakness; I10 Essential (primary) hypertension; F20.9 Schizophrenia, unspecified; F32.9 Major depressive disorder, single episode, unspecified; Z88.0 Allergy status to penicillin; Z88.1 Allergy status to other antibiotic agents; Z88.8 Allergy status to other drugs, medicaments and biological substances
CPT/HCPCS: 36415; 74177; 80053; 81001; 83735; 83880; 85025; 85610; 85730; 87086; 99285; Q9967

== ENCOUNTER 2019-08-23 12:35 | Emergency (ER) | payer MEDICARE, OTHER ==
[~2019-08-23] VITALS: Ht 162.6 cm; Wt 66.8 kg
[~2019-08-23 12:35] MED LIST changes: +CEPH-264 PO; +ONDA-84 PO; -ONDA4TAB11 PO
[2019-08-23 16:00] VITALS: BP 116/71
--- NOTE | 2019-08-23 17:55 | PHYS DOC ---
Past Medical History Past Medical History: CHF, Depression, Hypertension, Schizophrenia, Other Additional Past Medical Histor: liver problems, bowel problems Past Surgical History: Tonsillectomy, Other Additional Past Surgical Histo: breast reduction Smoking Status: Never Smoker Alcohol Use: None Drug Use: None Adult General Chief Complaint Chief Complaint: CONSTIPATION HPI HPI Patient is a 54 year old female presenting with constipation pt has chronic constipation area without normally saw doctor yesterday has not had a bowel movement 7 days is passing gas did vomit a couple of times does have some lower abdominal discomfort never had any abdominal surgeries. She does have irritable bowel syndrome constipation-type she tells me Allergies Allergies Allergies Coded Allergies Type Severity Reaction Last Updated Verified Penicillins Allergy Intermediate "i dont know" 07/14/18 No levofloxacin Allergy Intermediate 07/14/18 Yes topiramate Allergy Intermediate 07/14/18 Yes Physical Exam Physical Exam Constitutional: Well developed, well nourished, no acute distress, non-toxic appearance. [] HENT: Normocephalic, atraumatic, bilateral external ears normal, oropharynx moist, no oral exudates, nose normal. [] Eyes: PERRLA, EOMI, conjunctiva normal, no discharge. [] Neck: Normal range of motion, no tenderness, supple, no stridor. [] Cardiovascular:Heart rate regular rhythm, no murmur [] Lungs & Thorax: Bilateral breath sounds clear to auscultation [] Abdomen: Bowel sounds normal, soft, mild lower bowel tenderness with normal bowel sounds rectal exam does show a large rectal impaction with pretty firm brown stool I did remove a large volume of it. Skin: Warm, dry, no erythema, no rash. [] Back: No tenderness, no CVA tenderness. [] Extremities: No tenderness, no cyanosis, no clubbing, ROM intact, no edema. [] Neurologic: Alert and oriented X 3, normal motor function, normal sensory function, no focal deficits noted. [] Psychologic: Affect normal, judgement normal, mood normal. [] Current Patient Data Vital Signs Vital Signs Date Time Temp Pulse Resp B/P (MAP) Pulse Ox O2 Delivery O2 Flow Rate FiO2 08/23/19 16:00 62 19 116/71 (86) 98 Room Air 08/23/19 13:20 98.5 98.5 EKG EKG [] Radiology/Procedures Radiology/Procedures [] Course & Med Decision Making Course & Med Decision Making Pertinent Labs and Imaging studies reviewed. (See chart for details) []Fecal impaction patient received a disimpaction by me as well as a milk of molasses enema was much better at time of discharge Emy Disclaimer Dragon Disclaimer This electronic medical record was generated, in whole or in part, using a voice recognition dictation system. Departure Departure Impression: Primary Impression: Fecal impaction in rectum Disposition: 01 HOME, SELF-CARE Condition: STABLE Patient Instructions: Constipation, Adult, [id number] MAIK TOLBERT MD Aug 23, 2019 17:55
== END 2019-08-23 16:05 | disposition home or self-care (01) ==
LOC: ER 12:35
DX: K59.09 Other constipation (principal); R11.10 Vomiting, unspecified; I11.0 Hypertensive heart disease with heart failure; I50.9 Heart failure, unspecified; F20.9 Schizophrenia, unspecified; F32.9 Major depressive disorder, single episode, unspecified; Z88.0 Allergy status to penicillin; Z88.1 Allergy status to other antibiotic agents; Z88.8 Allergy status to other drugs, medicaments and biological substances
CPT/HCPCS: 99284